=== PATIENT | female | born 1950 | race Caucasian/White ===

== ENCOUNTER 2021-11-06 09:54 | Outpatient (CLI) | payer MEDICARE, SELFPAY | END 2021-11-06 09:55 | disposition home or self-care (01) | PROVIDERS: Visit Provider Family Medicine | DX: M51.36 Other intervertebral disc degeneration, lumbar region (principal); M54.16 Radiculopathy, lumbar region | CPT/HCPCS: 64483; J0702; Q9966 ==

== ENCOUNTER 2024-04-17 13:49 | Outpatient (CLI) | payer MEDICARE, BC, OTHER, SELFPAY | END 2024-04-17 13:50 | disposition home or self-care (01) | LOC: INJ CL 13:53 | PROVIDERS: Visit Provider Family Medicine | DX: M54.16 Radiculopathy, lumbar region (principal); M51.369 Other intervertebral disc degeneration, lumbar region without mention of lumbar back pain or lower extremity pain | CPT/HCPCS: 64483; Q9966 ==

== ENCOUNTER 2024-10-02 10:25 | Outpatient (CLI) | payer MEDICARE, OTHER, SELFPAY | END 2024-10-02 10:26 | disposition home or self-care (01) | LOC: INJ CL 10:29 | PROVIDERS: PCP Nurse Practitioner; Visit Provider Family Medicine | DX: M54.16 Radiculopathy, lumbar region (principal); M51.369 Other intervertebral disc degeneration, lumbar region without mention of lumbar back pain or lower extremity pain | CPT/HCPCS: 64483; 64484; J1100; Q9966 ==